=== PATIENT | female | born 1960 | race Two or more races ===

== ENCOUNTER 2023-07-10 10:53 | Emergency (ER) | payer OTHER ==
[~2023-07-10] VITALS: Ht 162.6 cm; Wt 89.8 kg
[2023-07-10] MEDS ORDERED: METFORMIN HCL500 M1 PO (11:55)
[2023-07-10] MEDS ORDERED: ATENOLOL25 MG PO (11:55)
[2023-07-10] MEDS ORDERED: ZETIA10 MG PO (11:56)
[2023-07-10] MEDS ORDERED: SYNTHROID88 MCG PO (11:56)
[2023-07-10] MEDS ORDERED: ESCITALOPRAM OX10 MG PO (11:56)
[2023-07-10] MEDS ORDERED: ADULT LOW DOSE81 M1 PO (11:56)
[2023-07-10] MEDS ORDERED: OZEMPIC0.25 MG/02 SQ (11:57)
[2023-07-10] MEDS ORDERED: REPATHA PU420 MG/3.5 SQ (11:57)
[2023-07-10 14:19] LABS: PH,URINE 5.5 (5.0-8.0); URINE APPEARANCE Clear; URINE BILIRRUBIN Negative (NEGATIVE); URINE BLOOD Small; URINE COLOR Yellow; URINE GLUCOSE Negative (NEGATIVE); URINE LEUKOCYTE Large; URINE NITRATE Negative; URINE PROTEIN Negative (NEGATIVE); URINE UROBILINOGEN 0.2 E.U./dl
[2023-07-10 14:23] LABS: URINE BACTERIA 91.9 uL (0.0-1933); URINE EPITHELIAL CELLS 5.1 uL (0.0-38.8); URINE WBC 729.8 uL (0.0-23.2)
[2023-07-10 14:28] LABS: HEMATOCRIT 42.5 % (36.0-45.00); HEMOGLOBIN 13.9 g/dL (12.0-15.00); MEAN CORPUSCULAR HEMOGLOBIN 28.1 pg (27.00-32.0); MEAN CORPUSCULAR HGB CONC 32.7 g/dl (32.0-36.0); PLATELET COUNT 460 K/uL (150-450); RED BLOOD COUNT 4.94 M/uL (4.00-6.00); RED CELL DISTRIBUTION WIDTH 14.3 % (11.5-14.5)
[2023-07-10 14:42] LABS: CALCIUM 9.4 mg/dL (8.5-10.1); CREATININE SERUM 0.75 mg/dL (0.55-1.02); GFR 78.3; POTASSIUM 4.05 mEq/L (3.5-5.1)
== END 2023-07-10 17:30 | disposition home or self-care (01) ==
LOC: ER 10:54
PROVIDERS: General Practice
DX: N39.0 Urinary tract infection, site not specified (principal); R10.11 Right upper quadrant pain; E11.9 Type 2 diabetes mellitus without complications; Z79.84 Long term (current) use of oral hypoglycemic drugs; E03.9 Hypothyroidism, unspecified; I10 Essential (primary) hypertension

== ENCOUNTER 2023-07-23 11:56 | Outpatient (CLI) | payer OTHER ==
[~2023-07-23 11:56] MED LIST: ADULT LOW DOSE81 M1 PO; ATENOLOL25 MG PO; ESCITALOPRAM OX10 MG PO; METFORMIN HCL500 M1 PO; OZEMPIC0.25 MG/02 SQ; REPATHA PU420 MG/3.5 SQ; SYNTHROID88 MCG PO; ZETIA10 MG PO
== END 2023-07-23 12:08 | disposition home or self-care (01) ==
LOC: SONOGRAMA 11:56
DX: K76.0 Fatty (change of) liver, not elsewhere classified (principal)

== ENCOUNTER → 2023-10-12 10:32 | Outpatient (CLI) | payer OTHER ==
[2023-10-12 11:28] LABS: URINE APPEARANCE Clear; URINE BILIRRUBIN Negative (NEGATIVE); URINE BLOOD Trace; URINE COLOR Yellow; URINE LEUKOCYTE Small; URINE NITRATE Negative; URINE PROTEIN Negative (NEGATIVE); URINE UROBILINOGEN 0.2 E.U./dl
[2023-10-12 11:31] LABS: URINE BACTERIA 128.5 uL (0.0-1933); URINE EPITHELIAL CELLS 10.9 uL (0.0-38.8); URINE WBC 240.3 uL (0.0-23.2)
[2023-10-12 11:36] LABS: URINE GLUCOSE >=1000 MG/DL (NEGATIVE)
== END | disposition home or self-care (01) ==
LOC: LAB 10:32
DX: N39.0 Urinary tract infection, site not specified (principal)